=== PATIENT | male | born 1945 ===

== ENCOUNTER 2024-03-06 14:52 | Outpatient (RCR) | payer OTHER, SELFPAY | END 2024-03-07 23:59 | disposition home or self-care (01) | LOC: PRC 14:52 | PROVIDERS: PCP Internal Medicine Pulmonary Disease; Referring Provider Student in an Organized Health Care Education/Training Program; Visit Provider Student in an Organized Health Care Education/Training Program | DX: J84.9 Interstitial pulmonary disease, unspecified (principal) | CPT/HCPCS: 94626 ==

== ENCOUNTER 2024-04-07 14:00 | Outpatient (RCR) | payer OTHER, SELFPAY ==
--- NOTE | 2024-04-10 10:13 | W.PFT ---
Date of service: 04/07/24 Time of Service: 14:08 Pulmonary Function Test Result Indications: Pulmonary rehab completion Interpretation Spirometry: There is no airflow limitation. Impression No airflow obstruction Clinical Correlation therefore is recommended.
== END 2024-04-07 23:59 | disposition home or self-care (01) ==
LOC: PRC 14:00
PROVIDERS: PCP Internal Medicine Pulmonary Disease; Referring Provider Student in an Organized Health Care Education/Training Program; Visit Provider Student in an Organized Health Care Education/Training Program
DX: J84.9 Interstitial pulmonary disease, unspecified (principal)
CPT/HCPCS: 94626